=== PATIENT | male | born 1970 | race Caucasian/White ===

== ENCOUNTER → 2020-02-26 09:19 | Outpatient (CLI) | payer OTHER, SELFPAY ==
--- NOTE | ~2020-02-26 | MR_ITS ---
EXAMINATION: MR knee RT wo con DATE: 02/26/2020 09:58 INDICATION: Right knee pain TECHNIQUE: Magnetic resonance imaging (MRI) of the right knee was performed without intravenous contr ast. Sequences included coronal PD-weighted FSE, coronal PD-weighted FS FSE, sagittal T2-weighted FS E, sagittal PD-weighted FS FSE and axial PD weighted fat saturated FSE. COMPARISON: None. FINDINGS: Medial compartment: Medial meniscus is normal. Partial-thickness chondral fissuring without degenerative subchondral woodward ges along the lateral third of the anterior weightbearing medial femoral condyle. Lateral compartment: Longitudinal tear of the lateral meniscus extending horizontally to contact the superior articular rubin rface at the anterior horn, crossing the free edge at the meniscal body and transitioning from horizo ntal to an oblique orientation which contacts the inferior articular surface near the free edge at th e body and progressing more peripherally to the peripheral third at the posterior horn. There is a sm all para meniscal cyst at the periphery of the anterior horn. Deep chondral fissuring involving great er than 50% the cartilage thickness at the posterior third of the lateral tibial plateau. Patellofemoral compartment: Mild patellar chondral surface regularity. There is a band of decreased signal extending from medial collateral across the central aspect of the patella suspicious for additional fissuring. Trochlear ca rtilage is normal. Ligaments and tendons: Anterior and posterior cruciate ligaments are normal. The medial collateral ligament and fibular addison ateral ligament complex are normal. The extensor mechanism is normal. The visualized medial and later al hamstring tendons as well as the iliotibial band are normal. Fluid: Physiologic amount of fluid in the joint space. No loose osteochondral bodies identified. Osseous/other: Normal marrow signal. No fracture or pathologic marrow replacing process. There is edema and/or synov itis at Hoffa's fat pad. IMPRESSION: 1. Complex lateral meniscal tear. 2. 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 Reviewed, dictated and finalized at location A. IMPRESSION: 1. Complex lateral meniscal tear. 2. Mild tricompartmental osteoarthritis with regions of moderate grade chondrom alacia in the medial and lateral compartments and low to moderate grade chondro malacia patella.
== END ==
PROVIDERS: PCP Internal Medicine; Visit Provider Physician Assistant Medical
DX: M25.561 Pain in right knee (principal); S83.271A Complex tear of lateral meniscus, current injury, right knee, initial encounter; M17.11 Unilateral primary osteoarthritis, right knee; M94.261 Chondromalacia, right knee
CPT/HCPCS: 73721